=== PATIENT | female | born 1945 | race Caucasian/White ===

== ENCOUNTER 2024-09-14 13:42 | Outpatient (REF) | payer MEDICARE, SELFPAY ==
--- NOTE | ~2024-09-14 | XR_ITS ---
EXAMINATION: XR KNEE 1-2 VIEWS RIGHT HISTORY: PAIN, SWELLING, R/O DJD, FX COMPARISON: There are no prior studies available for comparison. FINDINGS: AP and lateral views of the right knee are submitted. The bones are osteopenic. There is no fracture or dislocation. The joint spaces are preserved. There is a trace joint effusion. XR/XR knee RT 2V IMPRESSION: Trace joint effusion. Otherwise unremarkable examination of the right knee. Electronically signed by: Hussain Kingsley MD 09/15/2024 08:01 AM EDT
== END 2024-09-14 13:43 | disposition home or self-care (01) ==
LOC: HO.HMGCX 13:42
PROVIDERS: PCP Internal Medicine; Visit Provider Internal Medicine
DX: R60.0 Localized edema (principal); M25.561 Pain in right knee
CPT/HCPCS: 73560

== ENCOUNTER → 2024-09-14 13:49 | Outpatient (BNV) | payer MEDICARE, SELFPAY | PROVIDERS: PCP Internal Medicine; Visit Provider Radiology Diagnostic Radiology | DX: M25.561 Pain in right knee (principal); R22.41 Localized swelling, mass and lump, right lower limb | CPT/HCPCS: 73560 ==

== ENCOUNTER 2025-03-08 14:42 | Outpatient (REF) | payer MEDICARE, SELFPAY | END 2025-03-08 14:43 | disposition home or self-care (01) | LOC: HO.LAB 14:42 | PROVIDERS: PCP Physician Assistant Medical; Visit Provider Physician Assistant Medical | DX: R10.84 Generalized abdominal pain (principal); R19.5 Other fecal abnormalities; I10 Essential (primary) hypertension; R01.1 Cardiac murmur, unspecified; R26.81 Unsteadiness on feet; B35.1 Tinea unguium; Z78.9 Other specified health status; Z87.440 Personal history of urinary (tract) infections; Z79.899 Other long term (current) drug therapy | CPT/HCPCS: 96127; 99202 ==

== ENCOUNTER 2025-03-08 14:42 | Outpatient (AMB) | payer MEDICARE, SELFPAY ==
--- NOTE | 2025-03-08 14:47 | A.OFFPC_ITS ---
Vital Signs 03/08/25 14:57 Height 5 ft 4.17 in Weight 176 lb BMI 30.0 BP 160/74 H Blood Pressure Location Lt brachial Position Sitting Respiration 16 Pulse 84 Pulse Source Pulse Oximeter Temp 97.8 F Temp Source Temporal Artery Scan Pulse Oximetry (%) 97 Oxygen Delivery Method Room Air Intake Visit Reasons: Annual physical, [employer] Required: No Accompanied by: Self / Same As Patient Allergies cephalexin Allergy (Mild, Unverified 03/08/25 16:12) RASHHIVES droperidol Allergy (Mild, Unverified 03/08/25 16:12) UNKNOWN Penicillins Allergy (Mild, Unverified 03/08/25 16:12) RASHUNKNOWN Sulfa (Sulfonamide Antibiotics) Allergy (Mild, Unverified 03/08/25 16:12) UNKNBOWN latex (LATEX) Allergy (Unknown, Unverified 03/08/25 16:12) UNKNOWN droperidol Allergy (Unknown, Uncoded 03/08/25 16:12) hypotension keflex Allergy (Unknown, Uncoded 03/08/25 16:12) rash PCN Allergy (Unknown, Uncoded 03/08/25 16:12) rash Medication List - Last Reconciled 03/08/25 by Belkys Amin PA-C amlodipine 5 mg PO DAILY atorvastatin 20 mg PO BEDTIME levothyroxine 100 mcg PO QAM losartan 100 mg PO DAILY miscellaneous medical supply use daily raised toilet seat naproxen 500 mg PO BID 90 days Tobacco use date assessed: 03/08/25 Fall risk assessment: 1 Fall in past year Last assessed Fall Risk: 03/08/25 Dental Screening Dental Screen Date: 03/08/25 Did you have a dental visit in the last 12 months?: No Did you have a dental problem in the last 6 months where you did not have access to dental care?: No HPI Annual physical, [employer] HPI Details The patient is a 79-year-old female presenting as a new patient to establish care and for evaluation of gastrointestinal symptoms. She reports an episode two weeks ago where she vomited and had a bowel movement three times each within a ten-minute span, after which she felt dizzy and near-syncopal. The bowel movements that day progressed from a regular consistency to loose and then watery. Since that episode, the patient has experienced persistent nausea, a poor appetite for nearly two weeks, and has been consuming primarily chicken broth and soup. She reports associated chills, abdominal tenderness on the left side, foul-smelling urine, and foul-smelling stools with mucus. She denies fever, black stools, or bloody stools. The patient was treated with three different antibiotics in August for a urinary tract infection where her urine was noted to be pink. Her past medical history is significant for a thyroidectomy in March 2019, hypertension, and hyperlipidemia. She has chronic knee pain for which she takes naproxen. Her last colonoscopy was at age 52. Current medications include atorvastatin 20 mg, levothyroxine 100 mcg, losartan 100 mg, and naproxen. She uses a cane due to instability and reports difficulty getting up from a seated position, particularly from the toilet, but denies recent falls. Social History - Functional Status: The patient uses a cane due to being unstable on her feet. - Activity/Mobility: Reports having trou ble getting up from a chair and especially from the toilet. - Nutrition: Reports poor appetite for t wo weeks and has been consuming mainly chicken broth and chicken soup. [facility] Medical History (Updated 03/08/25 @ 16:17 by Belkys Amin PA-C) Health maintenance alteration Medication management Gait instability Colon cancer screening Breast cancer screening Osteoporosis screening Hypertension Chronic knee pain Heart murmur Abnormal stools Diffuse abdominal pain Onychomycosis Surgical History History of colonoscopy H/O thyroidectomy (~03/2019) Family History Mother COPD (chronic obstructive pulmonary disease) Father COPD (chronic obstructive pulmonary disease) Social History Housing: House Alcohol intake: current Alcohol intake frequency: does not drink Patient Tobacco Use Status: Former Tobacco user service: No Current occupational status: retired Cognitive needs: Yes (cane) Hearing needs: No Vision needs: Yes (rx glasses) Questionnaire PHQ-9 Over the last 2 weeks, how often have you been bothered by any of the following problems? 1. Little interest or pleasure in doing things: not at all 2. Feeling down, depressed, or hopeless: not at all 3. Trouble falling or staying asleep, or sleeping too much: not at all 4. Feeling tired or having little energy: not at all 5. Poor appetite or overeating: not at all 6. Feeling bad about yourself - or that you are a failure or have let yourself or your family down: not at all 7. Trouble concentrating on things, such as reading the newspaper or watching television: not at all 8. Moving or speaking so slowly that other people could have noticed. Or the opposite - being so fidgety or restless that you have been moving around a lot more than usual: not at all 9. Thoughts that you would be better off or of hurting yourself in some way: not at all Total score: 0 Depression Screening Interpretation: Negative Depression Screening Done: Yes 06361 - PHQ-9 Billing: Yes Source: Developed by Drs. Husasin Mercado, Marian Bingham, Solomon Gallardo and colleagues, with an educational kingsley from [employer]. Thrive Questionnaire Date Thrive assessed: 03/08/25 I am a: Patient What is your living situation today?: I have a steady place to live Within the past 12 months, did the food you bought not last and you didn't have the money to get more?: Never true Within the past 12 months, did you worry whether your food would run out before you got money to buy more?: Never true Do you have trouble paying for medicines?: No Do you have trouble getting transportation to medical appointments?: No Do you have trouble paying your heating and electricity bill?: No Do you have trouble taking care of your child, family member or friend?: No Do you have trouble with day-to-day activities such as bathing, preparing meals, shopping, managing finances, etc.?: No Are you currently unemployed and looking for a job?: No Are you interested in more education?: No Please select the resources that you would like help with: None THRIVE Score: 0 AUDIT C Alcohol Use Questionnaire (AUDIT-C) 1. How often do you have a drink containing alcohol?: Never 3. How often do you have six or more drinks on one occasion?: Never Total Score: 0 Score Reviewed/Action Taken: No KWESI-7 AMB Questionnaire KWESI-7 Date KWESI - 7 assessed: 03/08/25 Feeling nervous, anxious, or on edge: 0 = Not at all Not being able to stop or control worryin = Not at all Worrying too much about different things: 0 = Not at all Trouble relaxin = Not at all Being so restless that it is hard to sit still: 0 = Not at all Becoming easily annoyed or irritable: 0 = Not at all Feeling afraid as if something awful might happen: 0 = Not at all Total KWESI-7 score (0-4 normal; 5-9 mild; 10-14 moderate; 15-21 severe): 0 Source: Developed by Drs. Hussain Mercado, Marian Bingham, Solomon Gallardo and colleagues, with an educational kingsley from [employer]. KWESI-7 Assessment Billing KWESI-7 Assessment Tool: KWESI-7 Assessment 34694 Review of Systems Const Details: - Constitutional: Reports chills and feeling lousy. - Denies fever and unintentional weight loss. - Gastrointestinal: Reports nausea, abdominal pain on the left side which bulges, foul-smelling stool, and mucus in stool. - Reports history of vomiting three times and diarrhea two weeks ago. - Denies black or bloody stools. - Genitourinary: Reports foul-smelling urine. - Cardiovascular: Reports occasional throbbing sensation in her chest. - Denies chest pain. - Neurological: Reports dizziness, near-syncope, and having an off-balance feeling. - Musculoskeletal: Reports chronic knee pain and leg shaking. - Reports difficulty getting up from a chair. - Skin: Reports dark discoloration on the same toe of each foot for over a month. All systems reviewed & are unremarkable except as noted in HPI and below Physical exam (Primary Care) Vital Signs: Last Vital Signs Temp 97.8 F 03/08/25 14:57 Pulse 84 03/08/25 14:57 Resp 16 03/08/25 14:57 BP 160/74 H 03/08/25 14:57 Pulse Ox 97 03/08/25 14:57 Oxygen Delivery Method Room Air 03/08/25 14:57 Care Plan Goal for BP management: <140/90 patient to continue losartan 100 mg daily and will add amlodipine 5 mg daily BMI result Body Mass Index 30.0 BMI Assessment/Plan discussion: High BMI High, discussed plan: lifestyle, weight reduction, dietary, physical activity, alcohol moderation and other Tobacco/Smoking Status: Tobacco use Status Tobacco use date assessed 03/08/25 03/08/25 14:52 Patient Tobacco Use Status Former Tobacco user 03/08/25 15:09 PHQ-9: PHQ-9 Score PHQ-9: Total score 0 03/08/25 14:52 Depression Screening Interpretation: Negative Thrive Assessment: Date of Thrive Assessment Date Thrive assessed 03/08/25 03/08/25 14:52 Const Other: Appearance: Alert. Oriented X3. No acute distress. Head: Normal external exam. Normocephalic. Atraumatic. Eyes: Pupils are equal, round, and reactive to light. Extraocular movements intact. Conjunctiva and sclera normal. Eyelids normal. Ears: External auditory canal normal. Tympanic membranes normal. Throat: Pharynx normal. Uvula midline. Moist mucous membranes. Neck: Normal inspection. Neck supple. Full range of motion. No adenopathy. Thyroid Normal. No meningeal signs. No neck mass noted. Cardiovascular: Normal heart rate and rhythm. Heart sound normal. No murmurs noted. Pulses normal throughout. Respiratory: No respiratory distress. Painless inspiration. Breath sounds normal. No wheezes/rales/rhonchi noted. Chest nontender. No accessory muscle usage noted or decreased air movement noted. Abdomen: Soft and mild diffuse tenderness. Bowel sounds normal in all 4 hiram drants. No distention noted. No organomegaly noted. No visible injury noted. Back: No costovertebral angle tenderness. Full range of motion noted. Skin: Skin warm and dry. Normal skin color. Normal skin turgor. No rashes/lesions/lacerations noted. Extremities: No lower extremity edema. Extremities exhibit normal range of motion. Uses a cane for stability. Neuro: Oriented X 3. No motor deficit. No sensory deficit. Reflexes normal. Coding Level of Care Code New Pt Level 4 (88373) Complex EM visit Add On G2211 Diagnoses Diffuse abdominal pain R10.84 Abnormal stools R19.5 Hypertension I10 Heart murmur R01.1 Gait instability R26.81 Medication management Z79.899 Health maintenance alteration Z78.9 Onychomycosis B35.1 Colon cancer screening Z12.11 Osteoporosis screening Z13.820 Breast cancer screening Z12.39 Additional Codes PHQ-9 - 70471 - PHQ-9 Billing: Yes ([id number]) KWESI-7 Assessment Billing - KWESI-7 Assessment Tool: KWESI-7 Assessment 70247 ([id number]) Time Spent (min) 60 Assessment & Plan Assessment & Plan (1) Diffuse abdominal pain: Code(s): R10.84 - Generalized abdominal pain Category: Medical Plan: The patient's symptoms of diarrhea, abdominal pain, nausea, and foul-smelling stool began after recent treatment with three different antibiotics for a UTI. This presentation is suspicious for C. difficile colitis. Plan includes ordering a stool sample to test for C. difficile, fasting blood work to check electrolytes, a urinalysis, and a CT scan of the abdomen/pelvis (2) Abnormal stools: Code(s): R19.5 - Other fecal abnormalities Category: Medical Plan: The patient's symptoms of diarrhea, abdominal pain, nausea, and foul-smelling stool began after recent treatment with three different antibiotics for a UTI. This presentation is suspicious for C. difficile colitis. Plan includes ordering a stool sample to test for C. difficile, fasting blood work to check electrolytes, a urinalysis, and a CT scan of the abdomen/pelvis (3) Hypertension: Code(s): I10 - Essential (primary) hypertension Category: Medical Plan: The patient's blood pressure was elevated at 160/77 mmHg during the visit, i ndicating Stage 2 hypertension despite her current regimen of losartan. The patient's dizziness may be related to high blood pressure or an electrolyte imbalance. Amlodipine 5 mg daily will be added to her treatment regimen. The patient was instructed to monitor her blood pressure at home two hours after taking her medications and to follow up in one month. (4) Heart murmur: Code(s): R01.1 - Cardiac murmur, unspecified Category: Medical Plan: A heart murmur was auscultated during the physical exam, with the patient occasionally feeling a throbbing sensation. To further evaluate, an echocardiogram (ultrasound of the heart) will be ordered. (5) Gait instability: Code(s): R26.81 - Unsteadiness on feet Category: Medical Plan: The patient reports feeling unstable, uses a cane for ambulation, and has significant difficulty rising from a low seat, particularly the toilet. A prescription for a raised toilet seat will be provided to improve safety and ease of use, which the patient can obtain from a medical supply store. 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 The patient was counseled that she can safely take Tylenol and naproxen at the same time for increased pain relief, as they are metabolized differently. (7) Health maintenance alteration: Code(s): Z78.9 - Other specified health status Category: Medical Plan: The patient is overdue for several health screenings. A referral will be placed for a repeat colonoscopy, as her last one was at age 52. Orders will be placed for a screening mammogram and a bone density scan. A referral to podiatry will be made for evaluation of toenail discoloration, which is suspicious for onychomycosis. (8) Onychomycosis: Code(s): B35.1 - Tinea unguium Category: Medical Plan: Will refer to Podiatry. Condition is chronic and stable continue to monitor. (9) Colon cancer screening: Code(s): Z12.11 - Encounter for screening for malignant neoplasm of colon Category: Medical Plan: Referral to GI placed. (10) Osteoporosis screening: Code(s): Z13.820 - Encounter for screening for osteoporosis Category: Medical Plan: Referral for DEXA scan place. (11) Breast cancer screening: Code(s): Z12.39 - Encounter for other screening for malignant neoplasm of breast Category: Medical Plan: Referral for a mammogram place. Plan Plan Patient was informed and verbally consented to the use of an ambient scribe for clinic note documentation during this visit. 1. Acute Gastroenteritis, Suspected C. Difficile Colitis The patient's symptoms of diarrhea, abdominal pain, nausea, and foul-smelling stool began after recent treatment with three different antibiotics for a UTI. This presentation is suspicious for C. difficile colitis. Plan includes ordering a stool sample to test for C. difficile, fasting blood work to check electrolytes, a urinalysis, and a CT scan of the abdomen. 2. Uncontrolled Hypertension The patient's blood pressure was elevated at 160/77 mmHg during the visit, indicating Stage 2 hypertension despite her current regimen of losartan. The patient's dizziness may be related to high blood pressure or an electrolyte imbalance. Amlodipine 5 mg daily will be added to her treatment regimen. The patient was instructed to monitor her blood pressure at home two hours after taking her medications and to follow up in one month. 3. Heart Murmur A heart murmur was auscultated during the physical exam, with the patient occasionally feeling a throbbing sensation. To further evaluate, an echocardiogram (ultrasound of the heart) will be ordered. 4. Gait Instability The patient reports feeling unstable, uses a cane for ambulation, and has significant difficulty rising from a low seat, particularly the toilet. A prescription for a raised toilet seat will be provided to improve safety and ease of use, which the patient can obtain from a medical supply store. 5. Medication Management And Refills Refills for all current medications, including atorvastatin, levothyroxine, losartan, and naproxen, will be sent to the pharmacy. The patient was counseled that she can safely take Tylenol and naproxen at the same time for increased pain relief, as they are metabolized differently. 6. Health Maintenance The patient is overdue for several health screenings. A referral will be placed for a repeat colonoscopy, as her last one was at age 52. Orders will be placed for a screening mammogram and a bone density scan. A referral to podiatry will be made for evaluation of toenail discoloration, which is suspicious for onychomycosis. I discussed with the patient that her recent gastrointestinal symptoms, which started after a course of antibiotics, could be caused by an overgrowth of a bacteria called C. difficile, and that we would test for it with a stool sample. I explained that her blood pressure is in the Stage 2 hypertension range, and I am adding a new medication, amlodipine, to help lower it. I informed her that a heart murmur was detected, and I am ordering an ultrasound of her heart to investigate further. I provided her with orders for fasting blood work, a CT scan of her abdomen, a mammogram, and a bone scan, explaining that the facilities would call her to schedule. We discussed referrals for a colonoscopy and podiatry, and I provided a prescription for a raised toilet seat to assist with her mobility challenges. I clarified that she can take Tylenol and naproxen together for pain. I instructed her to return for a follow-up visit in one month to review the results. Orders: Orders Lipid Panel Today Z00.00 - Encounter for general adult medical examination without abnormal findings Liver Panel Today Z00.00 - Encounter for general adult medical examination without abnormal findings Vitamin B12 and Folate Today Z00.00 - Encounter for general adult medical examination without abnormal findings TSH reflex Free T4 Today Z00.00 - Encounter for general adult medical examination without abnormal findings UA CC w/rflx Micro + Cult Today Z00.00 - Encounter for general adult medical examination without abnormal findings GI Panel Today R19.8 - Other specified symptoms and signs involving the digestive system and abdomen MM screening mammo BI Today Z12.31 - Encounter for screening mammogram for malignant neoplasm of breast CT abdomen pelvis w IV con Today R10.84 - Generalized abdominal pain, R19.5 - Other fecal abnormalities CA echo transthoracic complete Today R01.1 - Cardiac murmur, unspecified Complete Blood Count Auto Diff Today Z00.00 - Encounter for general adult medical examination without abnormal findings Comprehensive [place]. Panel Fast Today Z00.00 - Encounter for general adult medical examination without abnormal findings Hemoglobin A1c Today Z00.00 - Encounter for general adult medical examination without abnormal findings C Reactive Protein Today Z00.00 - Encounter for general adult medical examination without abnormal findings Magnesium Today Z00.00 - Encounter for general adult medical examination without abnormal findings Vitamin D 25-OH Total Today Z00.00 - Encounter for general adult medical examination without abnormal findings CDiff Gene PCR Today R10.9 - Unspecified abdominal pain XR DEXA axial skeleton Today M81.0 - Age-related osteoporosis without current pathological fracture Referrals Gastroenterology Referral Z12.11 - Encounter for screening for malignant neoplasm of colon Podiatry Referral B35.1 - Tinea unguium Medications: New naproxen 500 mg PO BID 180 tabs 3RF 90 days amlodipine 5 mg PO DAILY 90 tabs 3RF miscellaneous medical supply use daily raised toilet seat 1 ea 0RF levothyroxine 100 mcg PO QAM 90 tabs 3RF atorvastatin 20 mg PO BEDTIME 90 tabs 3RF Patient Instructions: - Go to the lab to provide a urine sample today. - Go to the lab tomorrow morning for blood work. - Do not eat or drink anything for 8 to 10 hours before the blood test, but you can take your thyroid pill after the test is done. - Collect a stool sample using the cup and hat provided and bring it to the lab. - You will receive phone calls to schedule several appointments: a CT scan of your belly, a colonoscopy, a mammogram, a bone scan, an ultrasound of your heart, and a visit with a foot doctor. - Start taking the new blood pressure medication, amlodipine 5 mg, once a day. - You can take it at the same time as your other blood pressure pill, losartan. - Your other medications have been refilled and will be sent to your pharmacy. - Check your blood pressure at home about two hours after you take your blood pressure pills. - You can take Tylenol and naproxen (Aleve) at the same time if needed for pain relief. - Take the prescription for a raised toilet seat to a medical supply store like [facility] or [facility]. - Schedule a follow-up appointment in one month.
[2025-03-08 14:57] VITALS: BP 160/74; PULSE 84; RESP 16; TEMP 36.6; O2SAT 97
== END 2025-03-08 15:45 | disposition home or self-care (01) ==
LOC: HO.HMCSH 14:42
PROVIDERS: PCP Physician Assistant Medical; Visit Provider Physician Assistant Medical
DX: R10.84 Generalized abdominal pain (principal); R19.5 Other fecal abnormalities; I10 Essential (primary) hypertension; R01.1 Cardiac murmur, unspecified; R26.81 Unsteadiness on feet; Z79.899 Other long term (current) drug therapy; Z78.9 Other specified health status; B35.1 Tinea unguium; Z12.11 Encounter for screening for malignant neoplasm of colon; Z13.820 Encounter for screening for osteoporosis; Z12.39 Encounter for other screening for malignant neoplasm of breast

== ENCOUNTER 2025-03-09 07:41 | Outpatient (REF) | payer MEDICARE, SELFPAY ==
[2025-03-09 10:12] LABS: MANUAL DIFF FLAG NO
[2025-03-09 10:42] LABS: Hematocrit 43.9 % (37.0-47.0); Hemoglobin 14.3 g/dl (12.0-16.0); Imm Gran Abs Auto 0.01 X10*3/uL (0.00-0.03); Imm Gran Pct Auto 0.2 % (0.0-0.4); Lymphocytes Absolute Auto 2.4 X10*3/uL (1.2-4.9); Mean Corpuscular HGB Conc 32.6 g/dl (31.0-35.0); Mean Corpuscular Hemoglobin 29.1 pg (27.0-33.0); Mean Corpuscular Volume 89.2 fL (80.0-98.0); NRBC Abs Auto 0.000 X10*3/uL (0.0-0.012); NRBC Pct Auto 0.0 /100WBC (0.0-0.2); Platelet Count 264 X10*3/uL (160-400); Red Blood Count 4.92 X10*6/uL (4.20-5.50); White Blood Count 5.3 X10*3/uL (4.8-10.8)
[2025-03-09 10:57] LABS: Appearance Urine Clear; Glucose Urine UA Negative (Negative); PH 6.0 (5.0-9.0); Specific Gravity - Urine 1.015 (1.005-1.025); UMIC TRIGGER UACC YES
[2025-03-09 11:09] LABS: Alanine Aminotransferase 8 U/L (0-31); Albumin Level 4.6 g/dL (3.5-5.0); Alkaline Phosphatase 74 U/L (39-117); Anion Gap 15 (12-20); Aspartate Amino Transferase 28 U/L (5-31); Blood Urea Nitrogen 13 mg/dL (9-16); Calcium 9.4 mg/dL (8.4-10.2); Carbon Dioxide 27 mmol/L (22-29); Chloride 109 mmol/L (96-108); Cholesterol 156 mg/dL (<200); Estimated Glomerular Filt Rate > 60; HDL Cholesterol 54 mg/dL (>40); Magnesium 2.3 mg/dL (1.6-2.6); Potassium 4.8 mmol/L (3.3-5.1); Sodium 146 mmol/L (135-145); Total Protein 7.5 g/dL (6.5-8.0); Triglycerides 103 mg/dL (<150)
[2025-03-09 11:16] LABS: Folate 13.3 ng/mL (> or = 4.0); Vitamin B12 220 pg/mL (200-900)
[2025-03-09 13:19] LABS: CDiff Gene PCR NEGATIVE (Negative)
== END 2025-03-09 07:42 | disposition home or self-care (01) ==
LOC: HO.HMGCLDS 07:41
PROVIDERS: PCP Physician Assistant Medical; Visit Provider Physician Assistant Medical
DX: Z00.00 Encounter for general adult medical examination without abnormal findings (principal); R10.9 Unspecified abdominal pain; Z13.6 Encounter for screening for cardiovascular disorders; Z13.29 Encounter for screening for other suspected endocrine disorder
CPT/HCPCS: 80053; 80061; 80076; 81001; 82248; 82306; 82607; 82746; 83036; 83735; 84443; 85025; 86140; 87493

== ENCOUNTER 2025-03-13 09:20 | Outpatient (REF) | payer MEDICARE, SELFPAY ==
[2025-03-14 11:27] LABS: E. coli EAEC Not Detected (Not Detect.); E. coli EPEC Not Detected (Not Detect.); E. coli ETEC Not Detected (Not Detect.); E. coli STEC Not Detected (Not Detect.); Shigella sp./EIEC Not Detected (Not Detect.)
== END 2025-03-13 09:21 | disposition home or self-care (01) ==
LOC: HO.HMGCLNP 09:20
PROVIDERS: PCP Physician Assistant Medical; Visit Provider Physician Assistant Medical
DX: R19.8 Other specified symptoms and signs involving the digestive system and abdomen (principal)
CPT/HCPCS: 87507